=== PATIENT | female | born 1995 | race African-American/Black ===

== ENCOUNTER 2018-07-06 13:48 | Outpatient (CLI) | payer OTHER ==
[~2018-07-06] VITALS: Ht 160 cm; Wt 82.0 kg
[~2018-07-06 13:48] MED LIST: PRENAT PO; SERT50TA PO
[2018-07-06 14:31] VITALS: Ht 160 cm; Wt 82.0 kg
[2018-07-06 14:32] VITALS: BP 117/74; PULSE 87; RESP 18
--- NOTE | 2018-07-06 15:38 | PN ---
Triage Information Date/Time Reason for visit: Polyhydramnios for NST BPp Weeks of Gestation 39+ /Para 4/2 Diabetes: none Hypertention: none Objective Vital Signs Date Temp Pulse Resp B/P (MAP) Pulse Ox O2 O2 Flow FiO2 Time Delivery Rate 07/06/18 97.6 87 18 117/74 Room Air 14:32 (88) Heart Rate: 140's Contractions: None Disposition: Discharge Assessment/Plan BPP 02/26 Patient celia discuss the plan of delivery with her docotr Risks and benefit discussed CX closed Questions answered Follow up with her provider SYDNEY PATRICIA M.D. Jul 06, 2018 15:38
--- NOTE | 2018-07-06 15:43 | TRIAGE ---
OB Triage Datetime Report Generated by CPN: 07/06/2018 15:43 Datetime: 07/06/2018 15:27 Vaginal Exam Dilatation (cms): 0.5 Effacement (%): 50 Station: -3 Exam By: [email or web address] Vaginal Bleeding: None Cervix, Consistency: Moderate Cervix, Position: Midposition Datetime: 07/06/2018 14:40 Stage of : OB Triage Headache: Denies Blurred Vision: No RUQ Epigastric Pain: Denies Facial Edema: None Labor Evaluation Frequency: irr Monitor Mode: External Duration (sec)2399: 60 Quality: Mild Pattern: Normal: <= 5 Contractions in 10 Minutes Resting Tone [place]: Relaxed Heart Rate FHR Baseline Rate: 145 Monitor Mode: External US FHR Baseline Changes: No Baseline Change Variability: Moderate 6-25 bpm Accelerations: 15X15 Decelerations: None Category: Category I Pain Presence: None/Denies Membrane Status: Intact Datetime: 07/06/2018 14:29 Stage of : OB Triage Maternal Assessment Level of Consciousness: Fully Conscious DTR's/Clonus: DTRs 2+; No Clonus Headache: Denies Blurred Vision: No Respiratory Effort: Unlabored; Regular Rhythm; Equal Expansion Breath Sounds, Left: Clear and Equal Breath Sounds, Right: Clear and Equal Nausea/Vomiting: Denies RUQ Epigastric Pain: Denies Lower Extremities Edema: None Degree: None Upper Extremities Edema: None Degree: None Facial Edema: None Temperature Route: Oral Fall Risk Assessment History of Falling: (0) No Secondary Diagnosis: (0) No Ambulatory Aid: (0) Bedrest/Nurse Assist IV Therapy: (0) No Gait: (0) Normal/Bedrest/Immobile Mental Status: (0) Oriented to Own Ability Fall Score: 0 Fall Risk Score Definition: No Risk: No action required Heart Rate FHR Baseline Rate: 140 Monitor Mode: External US FHR Baseline Changes: No Baseline Change Variability: Moderate 6-25 bpm Accelerations: 15X15 Decelerations: None Pain Assessment Pain Scale: 0 Datetime: 07/06/2018 13:57 Time of Arrival: 07/06/2018 13:57 EGA: 39.1 Chief Complaint: follow up NST/ BPP for polyhydramnious Movement: Present Contractions: Irregular Rupture of Membranes: Denies Vaginal Discharge: Denies Recent Sexual Intercouse: Denies Abdominal Trauma: Not Applicable Patient Complaints: Other Time Provider Notified: 07/06/2018 15:30 Provider Notified: ESHAGHIAN Initial Plan: BPP/NST/SVE Datetime: 07/02/2018 12:11 Fall Score: 0 Fall Risk Score Definition: No Risk: No action required Datetime: 07/02/2018 12:10 EGA: 38.4
== END 2018-07-06 15:45 | disposition home or self-care (01) ==
LOC: OBT 13:48 → L-D 13:49 → OBT 15:45
PROVIDERS: ATTEND Obstetrics & Gynecology
DX: O40.3XX0 Polyhydramnios, third trimester, not applicable or unspecified (principal); Z3A.39 39 weeks gestation of pregnancy
CPT/HCPCS: 76818; Z7500; G0463

== ENCOUNTER 2018-07-08 13:10 | Outpatient (CLI) | payer OTHER ==
[~2018-07-08] VITALS: Ht 160 cm; Wt 82.0 kg
[2018-07-08 13:47] VITALS: BP 120/76; PULSE 104; RESP 17
--- NOTE | 2018-07-08 16:13 | PN ---
Triage Information Date/Time Reason for visit: Uterine contractions Weeks of Gestation 39+ /Para n/a Diabetes: none Hypertention: none Objective Vital Signs Date Temp Pulse Resp B/P (MAP) Pulse Ox O2 O2 Flow FiO2 Time Delivery Rate 07/08/18 98.1 104 17 120/76 Room Air 13:47 (91) Heart Rate: 140's Contractions: None Disposition: Discharge Assessment/Plan BPP 10/10 CX clsoed Discharged with precautions Questions answered Precautions discussed Follow up with provider SYDNEY PATRICIA M.D. Jul 08, 2018 16:13
== END 2018-07-08 15:48 | disposition home or self-care (01) ==
LOC: L-D 13:10 → OBT 13:10
PROVIDERS: ATTEND Obstetrics & Gynecology
DX: O62.9 Abnormality of forces of labor, unspecified (principal); Z3A.39 39 weeks gestation of pregnancy
CPT/HCPCS: 76818; Z7500; G0463

== ENCOUNTER 2018-07-12 02:17 | Inpatient (IN) | payer OTHER ==
[~2018-07-12] VITALS: Ht 160 cm; Wt 83.7 kg
[2018-07-12 02:28] VITALS: Ht 160 cm; Wt 83.7 kg
[2018-07-12] MEDS ORDERED: CARBOPROST 250 MCG INJ IM PRN ×2 (03:00→08:00)
[2018-07-12] MEDS ORDERED: OXYTOCIN 30 UNITS/LR 500 ML IV SCH (03:00)
[2018-07-12] MEDS ORDERED: MISOPROSTOL 200 MCG TAB PR PRN ×2 (03:00→08:00)
[2018-07-12] MEDS ORDERED: OXYTOCIN 30 UNITS/LR 500 ML IV PRN ×2 (03:00→08:00)
[2018-07-12] MEDS ORDERED: BUTORPHANOL 2 MG INJ IV PRN (03:00)
[2018-07-12] MEDS ORDERED: LIDOCAINE 1% (MPF) 30 ML INJ INJ PRN (03:00)
[2018-07-12] MEDS ORDERED: IBUPROFEN 600 MG TAB PO PRN (03:00)
[2018-07-12] MEDS ORDERED: METHYLERGONOVINE 0.2 MG INJ IM PRN ×2 (03:00→08:00)
[2018-07-12] MEDS ORDERED: OXYCODONE/ACETAMINOPHEN (5/325) TAB PO PRN (03:00)
[2018-07-12] MEDS: LACTATED RINGER'S 1,000 ML IV SCH ×2 (03:10→03:52)
[2018-07-12] MEDS ORDERED: DOCO100C PO (03:10)
--- NOTE | 2018-07-12 03:29 | HP ---
Date/Time of Note Date/Time of Note DATE: 07/12/18 TIME: 03:23 OB - History Hx of Present Free Text/Dictation 22 years old 2 para 1001 with single intrauterine at 40 weeks complaining of possible leakage of fluid. She states good movement. She denies nausea, vomiting, shortness of breath, chest pain, headache, visual changes, vaginal bleeding. Chief Complaint: Possible leakage of fluid Estimated Due Date: Jul 12, 2018 : 2 Para: 1 Spontaneous : 0 Therapeutic : 0 Care: Good Care Ultrasounds: Normal mid trimester US Obstetrical Complications: None Medical Complications: None Past Family/Social History * Past Medical, Surgical, Family and Obstetric Histories reviewed-unremarkable Blood Type: AB+ Rubella: immune RPR/VDRL: Negative GBS Status: Negative HBsAG: Negative OB Admission Exam Vital Signs Vital Signs Blood pressure 120/69, pulse rate 68/minutes, temperature 98.6, respiratory rate 16/minutes Physical Exam HEENT: WNL Heart: Rhythm Normal Lungs: Clear Abdomen: WNL Extremities: Normal Cervical Dilatation: 3cm Effacement: Other (90 percentile) Station: -2 Membranes: Intact Heart Rate: 130's Accelerations: Accelerations Present Decelerations: No Decelerations Varibility: Moderate Contractions on Admission: < 5 Minutes Apart Intensity: Moderate OB Assessment/Plan Other plan: 22 years old 2 para 1001 with single intrauterine at 40 weeks in labor - FHR: No sign of metabolic acidosis- Category I - Continuous EFM, toco - CBC, blood type and screen - Analgesia options with R/B/A discussed in detail with patient - Epidural per patient request - Please see the orders - AB positive /Rubella: Immune - GBS: Negative Admission, procedures, expectations, risks and possible complications have been discussed in detail with the patient. Risk of vaginal delivery including but not limited to bleeding, infection, cervical laceration, placental retention, injury to fetus, blood transfusion, blood transfusion related infection, risk of anesthesia, adhesion, cervical laceration, episiotomy/laceration, possible delivery with risk of bleeding, infection, injury to other organs (bowel, bladder, ureter, vessels, nerves), injury to fetus, blood transfusion, blood transfusion related infection, risk of anesthesia, scar and hernia formation, needs for future , removal of uterus or any other indicated surgery discussed with the patient. She expressed understanding and repeats the risks. All of her questions were answered. She signed the informed consent. PHYSICIAN'S VERIFICATION OF INFORMED CONSENT The patient was counseled regarding the procedure, its indications, risks, potential complications and alternatives and any questions were answered. Consent was obtained. PLANNED PROCEDURE/TREATMENT: Vaginal delivery, episiotomy, repair of laceration possible delivery DESTINY KINNEY Jul 12, 2018 03:29
--- NOTE | 2018-07-12 04:01 | PREAC ---
Date/Time of Note Date/Time of Note DATE: 07/12/18 TIME: 04:00 Anesthesia Eval and Record Evaluation Time Pre-Procedure Interview DATE: 07/12/18 TIME: 04:00 Age 22 Sex female NPO: 8 hrs Preoperative diagnosis labor pain Planned procedure epidural Past Medical History Past Medical History: Includes : Gestational age: (40) Surgery & Anesthesia Issues No known issue Meds Anticoagulation: No Beta Mckenna within 24 hr: No Reason Beta Mckenna not given: Pt. not on B-Mckenna Reported Medications Docosahexanoic Acid (DHA) 100 Mg Capsule, 100 MG PO DAILY, CAP 07/12/18 Sertraline Hcl* (Zoloft*) 50 Mg Tablet, 50 MG PO DAILY, #30 TAB 05/08/16 Multivit/Min/Fol Ac/Iron/Pren* ( S*) 1 Tab Tab, 1 TAB PO DAILY, TAB 04/30/16 Current Medications Lactated Ringer's 1,000 ml @ 125 mls/hr Q8H IV ; Start 07/12/18 at 02:57 Butorphanol Tartrate (Stadol) 2 mg Q2H PRN IV .PAIN; Start 07/12/18 at 03:00 Lidocaine (Xylocaine 1% (Mpf)) 30 ml ONCE PRN INJ .EPISIOTOMY; Start 07/12/18 at 03:00 Oxytocin/Lactated Ringer's 500 ml @ 500 mls/hr ONCE POST IV ; Start 07/12/18 at 03:00 Oxytocin/Lactated Ringer's 500 ml @ 125 mls/hr POST IV ; Start 07/12/18 at 03:00 Ibuprofen (Motrin) 600 mg ONCE PRN PO .PAIN 1-5; Start 07/12/18 at 03:00 Oxycodone/ Acetaminophen (Percocet (5/ 325)) 2 tab ONCE PRN PO .PAIN 6-10; Start 07/12/18 at 03:00 Oxytocin/Lactated Ringer's 500 ml @ 0 mls/hr ONCE PRN IV .VAGINAL BLEEDING; Start 07/12/18 at 03:00 Methylergonovine Maleate (Methergine) 0.2 mg ONCE PRN IM .VAGINAL BLEEDING; Start 07/12/18 at 03:00 Carboprost Tromethamine (Hemabate) 250 mcg ONCE PRN IM .VAGINAL BLEEDING; Start 07/12/18 at 03:00 Misoprostol (Cytotec) 1,000 mcg ONCE PRN AL .VAGINAL BLEEDING; Start 07/12/18 at 03:00 Meds reviewed: Yes Allergies Coded Allergies: No Known Drug Intolerances (Verified Allergy, Unknown, 04/30/16) Allergies Reviewed: Yes Labs/Studies Labs Reviewed: Reviewed by anesthesiologist Result Diagram: 07/12/18 0310 Laboratory Tests 07/12/18 03:10 test: Positive Studies: ECG (n/a), CXR (n/a) Pre-procedure Exam Airway: Adequate mouth opening Mallampati: Mallampati I Teeth: Normal Lung: Normal Heart: Normal ASA Physical Status ASA physical status: 2 Emergency: None Planned Pain Management Epidural Pre-operative Attestations Prior to commencing anesthesia and surgery, the patient was re-evaluated, there was verification of: *The patient's identity *The results of appropriate recent lab work and preoperative vital signs *The above evaluation not changing prior to induction *Anesthetic plan, risk benefits, alternative and complications discussed with patient/family; questions answered; patient/family understands, accepts and wishes to proceed. MAURI MCCLOUD MD Jul 12, 2018 04:01
[2018-07-12] MEDS ORDERED: FENTAnyl 2MCG/ML-ROPIV 0.2% 100 ML ONE (04:56)
--- NOTE | 2018-07-12 05:04 | PAC ---
Date/Time of Note Date/Time of Note DATE: 07/12/18 TIME: 05:03 Post-Anesthesia Notes Post-Anesthesia Note Last documented vital signs BP 145/87 HR 85, RR 19 , sat 98% temp 98 Activity: WNL Respiratory function: WNL Cardiovascular function: WNL Mental status: Baseline Pain reasonably controlled: Yes Hydration appropriate: Yes Nausea/Vomiting absent: No MAURI MCCLOUD MD Jul 12, 2018 05:04
[2018-07-12] MEDS ORDERED: FENTAnyl 2MCG/ML-ROPIV 0.2% 100 ML BAG EPI SCH (05:30)
[2018-07-12] MEDS ORDERED: NALOXONE (0.4 MG/ML) INJ IV PRN (05:30)
[2018-07-12] MEDS ORDERED: ONDANSETRON 4 MG INJ IV PRN ×2 (05:30→08:00)
[2018-07-12] MEDS: DEXTROSE 5%-LR 1,000 ML IV SCH ×2 (07:31→15:31)
[2018-07-12] MEDS: OXYTOCIN 30 UNITS/LR 500 ML IV SCH ×2 (07:46→07:48)
[2018-07-12] MEDS ORDERED: ZOLPIDEM 5 MG TAB PO PRN (08:00)
[2018-07-12] MEDS ORDERED: BENZOCAINE 20% 56 ML SPRAY TOP PRN (08:00)
[2018-07-12] MEDS ORDERED: ACETAMINOPHEN 325 MG TAB PO PRN (08:00)
[2018-07-12] MEDS ORDERED: OXYCODONE/ASPIRIN (4.88/325) TAB PO PRN (08:00)
[2018-07-12] MEDS ORDERED: SENNA/DOCUSATE NA (8.6MG/50MG) TAB PO PRN (08:00)
[2018-07-12] MEDS ORDERED: DIBUCAINE 1% 30 GM OINT TOP PRN (08:00)
[2018-07-12] MEDS ORDERED: DIPHENHYDRAMINE 50 MG INJ IV PRN (08:00)
[2018-07-12] MEDS ORDERED: LANOLIN HPA 1 PKT TOP PRN (08:00)
[2018-07-12 09:10] VITALS: BP 115/72; PULSE 75; RESP 18
[2018-07-12] MEDS: WITCH HAZEL/GLYCERIN PAD PR PRN (11:03)
[2018-07-12] MEDS: LACTATED RINGER'S 1,000 ML IV* SCH ×2 (11:03→15:31)
[2018-07-12] MEDS: IBUPROFEN 600 MG TAB PO SCH ×2 (12:24→18:00)
--- NOTE | 2018-07-12 14:11 | LDN ---
Date/Time of Note Date/Time of Note DATE: 07/12/18 TIME: 14:07 Delivery Summary 22 years old 2 para 1001 with single intrauterine at 40 weeks delivered a viable male over intact peritoneum. There was tight nuchal cord which clamped and cut. Rest of body delivered. Baby given to the nurse. Placenta delivered spontaneously and intact with three-vessel cord. Time of delivery: 07:11 Weight 8 pounds 1 ounces - 3645 gram. Height 20 inches 7 at 1 minutes and 9 at 5 minutes EBL 200 Weeks of Gestation 40 weeks Placenta Delivered: Spontaneously Episiotomy: No Estimated blood loss: 200 Sponge & Needle done & correct: Yes All needle counts correct: Yes Any foreign bodies felt in the: No Infant Delivery Information Sex Infant Sex: male Apgars 1 Minute: 7 5 Minute: 9 10 Minute: 10 Umbilical Cord Umbilical cord with: 3 Vessels Cord presentations: nuchal cord Nuchal cord present X: 1 Cord Blood was obtained: Yes Mother & Baby Disposition Disposition Mom & Baby to Maternity; Good: Yes DESTINY KINNEY Jul 12, 2018 14:11
[2018-07-12 15:57] VITALS: BP 109/58; PULSE 83; RESP 18
[2018-07-12 19:20] VITALS: BP 112/64; PULSE 64; RESP 19
[2018-07-13] MEDS: IBUPROFEN 600 MG TAB PO SCH ×5 (00:07→23:42)
[2018-07-13 04:10] VITALS: BP 101/59; RESP 19
[2018-07-13 07:55] VITALS: BP 103/67; PULSE 88; RESP 18
--- NOTE | 2018-07-13 10:36 | PN ---
Date/Time of Note Date/Time of Note DATE: 07/13/18 TIME: 10:35 OB Subjective Subjective Subjective Patient without complaints OB Objective Objective Objective Gen: NAD Abd: FF OB Assessment/Plan Other Assessment: PPD1 Other plan: -continue routine care -anticipate discharge home tomorrow -desires circumcision ROSEMARY MURO Jul 13, 2018 10:36
[2018-07-13 15:57] VITALS: BP 113/59; PULSE 94; RESP 20
[2018-07-13 19:30] VITALS: BP_SYST 117; BP_SYST 124; BP_DIAS 56; BP_DIAS 64; PULSE 89; PULSE 91; RESP 19; RESP 20
[2018-07-14 04:00] VITALS: BP 116/72; PULSE 80; RESP 18
[2018-07-14] MEDS: IBUPROFEN 600 MG TAB PO SCH ×2 (05:30→11:58)
[2018-07-14 08:35] VITALS: BP 116/62; PULSE 92; RESP 17
--- NOTE | 2018-07-14 08:52 | PD.PPDC ---
LEGAL SERVICE SPECIALIST Discharge Instruction Condition [id number] Patient Condition: [id number] Good Diet [id number] Diet: [id number] Resume Regular Diet Activity/Restrictions [id number] Activity: [id number] Normal Activity May Shower [id number] Restrictions: [id number] No Exercising No Lifting No Driving No Sexual Activity Nothing in the Vagina No [place] No Tampons, douche Follow-up Follow-up with Physician: 3, Week/Weeks Return to clinic for [id number] MANAGER LAB Instructions: [id number] Fever greater than 101 Chills Worsening abdominal pain Excessive Vaginal Bleeding More than 2 pads per hour Unable to tolerate diet [id number] OB Instructions: [id number] Breast Tenderness Depression Blurried Vision Headache LALITA PEREZ MD Jul 14, 2018 08:52
--- NOTE | 2018-07-14 08:54 | DS ---
Date/Time of Note Date/Time of Note DATE: 07/14/18 TIME: 08:53 Obstetrical Discharge Record Final Diagnosis Final Diagnosis: Term delivered Vaginal Delivery Obstetrical Delivery: Spontaneous Condition on Discharge Physical Assessment Last Vitals: stable afebrile Voiding: Yes Bowel Movement: Yes Breast: Soft, non-tender, Filling Fundus: Firm Abdomen and Incision: soft nt Calf Tenderness: No Patient Condition: Fair LALITA PEREZ MD Jul 14, 2018 08:54
[2018-07-14] MEDS ORDERED: MEASLES,MUMPS,RUBELLA VACCINE INJ SC* ONE (09:00)
[2018-07-14] MEDS ORDERED: DIPHTH/TET/ACEL PERTUSS (ADULT) 0.5 ML VIAL IM* ONE (09:00)
[2018-07-14] MEDS: WITCH HAZEL/GLYCERIN PAD PR PRN (12:18)
== END 2018-07-14 12:40 | disposition home or self-care (01) | DRG 807 ==
LOC: OBT 02:17 → L-D 02:24 → OBT 02:50 → L-D 02:50 → PP1 09:11
PROVIDERS: ADMIT Obstetrics & Gynecology; ATTEND Obstetrics & Gynecology
PROC: 10E0XZZ Delivery of Products of Conception, External Approach (ICD-10-PCS; principal; 2018-07-12)
DX: O69.1XX0 Labor and delivery complicated by cord around neck, with compression, not applicable or unspecified (principal); Z37.0 Single live birth; Z3A.40 40 weeks gestation of pregnancy
CPT/HCPCS: 62319; 80307; 85025; 85610; 85730; 86592; 86850; 86900; 86901; 87340; 99464; G0463; J0595; J2590; J3010; J7120; J7121